=== PATIENT | male | born 1975 | race Caucasian/White ===

== ENCOUNTER 2017-06-01 13:27 | Emergency (ER) | payer OTHER ==
[2017-06-01 13:42] VITALS: O2SAT 99
[2017-06-01] MEDS ORDERED: Tdap Vaccine 0.5 ml Vial (10-64 yrs) IM ONE ×2 (14:38→14:49)
--- NOTE | 2017-06-01 14:46 | ED PDOC ---
Upper Extremity Pain/Injury Time Seen by Provider: 06/01/17 14:26 Chief Complaint (Nursing): Upper Extremity Problem/Injury Chief Complaint (Provider): Left shoulder pain History Per: Patient History/Exam Limitations: no limitations Onset/Duration Of Symptoms: Days (x2) Current Symptoms Are (Timing): Still Present Additional Complaint(s): 41 year old male presents to the ER complaining of left shoulder pain for the past 2 days. States he was standing on a chair doing house work when the chair moved, causing him to fall and hit his left shoulder on something metal. No head trauma or LOC. Pain has been progressively worsening. Patient denies any headache, neck pain, chest pain, shortness of breath, dizziness, numbness, tingling, or other injury. He has no pain at the elbow, wrist, or hand. Tetanus is not up to date. PMD: None Past Medical History Reviewed: Historical Data, Nursing Documentation, Vital Signs Vital Signs: Last Vital Signs Temp 98.8 F 06/01/17 13:40 Pulse 76 06/01/17 13:40 Resp 16 06/01/17 13:40 BP 144/88 06/01/17 13:40 Pulse Ox 99 06/01/17 13:40 - Medical History PMH: No Chronic Diseases - Family History Family History: States: Unknown Family Hx - Home Medications Home Medications: Ambulatory Orders Medication Instructions Recorded Doxycycline [Adoxa] 100 mg PO BID #20 tab 01/01/15 Ibuprofen [Motrin] 600 mg PO TID 7 Days tab 06/01/17 - Allergies Allergies/Adverse Reactions: Allergies Allergy/AdvReac Type Severity Reaction Status Date / Time No Known Allergies Allergy Verified 01/01/15 18:22 Review of Systems ROS Statement: Except As Marked, All Systems Reviewed And Found Negative Constitutional: Negative for: Fever, Chills Cardiovascular: Negative for: Chest Pain Respiratory: Negative for: Shortness of Breath Gastrointestinal: Negative for: Nausea, Vomiting, Diarrhea Musculoskeletal: Positive for: Shoulder Pain (Left). Negative for: Neck Pain, Back Pain Neurological: Negative for: Weakness, Numbness (and tingling), Headache, Dizziness, Other (LOC) Physical Exam - Reviewed Nursing Documentation Reviewed: Yes Vital Signs Reviewed: Yes - Physical Exam Appears: Positive for: Non-toxic, No Acute Distress Head Exam: Positive for: ATRAUMATIC, NORMAL INSPECTION, NORMOCEPHALIC Skin: Positive for: Normal Color (with 12 inch superficial abrasion over the left shoulder, with scabbing. No open laceration; mild tender; no fluctuance.), Warm, Dry Eye Exam: Positive for: EOMI, Normal appearance, PERRL Neck: Positive for: Normal, Painless ROM, Supple Cardiovascular/Chest: Positive for: Regular Rate, Rhythm. Negative for: Murmur Respiratory: Positive for: Normal Breath Sounds. Negative for: Accessory Muscle Use, Respiratory Distress Pulses-Radial (L): 2+ Pulses-Radial (R): 2+ Gastrointestinal/Abdominal: Positive for: Normal Exam, Bowel Sounds, Soft. Negative for: Tenderness Back: Positive for: Normal Inspection. Negative for: Vertebral Tenderness Extremity: Positive for: Normal ROM (Patient w/ mild pain on ROM but has full ROM L shoulder). Negative for: Tenderness, Deformity, Swelling Neurologic/Psych: Positive for: Alert, Oriented. Negative for: Motor/Sensory Deficits - ECG O2 Sat by Pulse Oximetry: 99 (RA) Pulse Ox Interpretation: Normal - Radiology X-Ray: Interpreted by Me X-Ray Interpretation: No Acute Disease - Progress ED Course And Treament: 1534: Stable. AAOx3. Pain free. Tolerated PO. Fu with pcp. Medical Decision Making Medical Decision Making: Initial Impression: Left shoulder injury Time: 14:38 Initial Plan: * Tdap vaccine given * Toradol 15 mg IM * X-Ray of left shoulder * Reevaluation Scribe Attestation: Documented by Maida Tse, acting as a scribe for John Chin MD Provider Scribe Attestation: All medical record entries made by the Scribe were at my direction and personally dictated by me. I have reviewed the chart and agree that the record accurately reflects my personal performance of the history, physical exam, medical decision making, and the department course for this patient. I have also personally directed, reviewed, and agree with the discharge instructions and disposition. Disposition - Clinical Impression Clinical Impression: Shoulder injury, Abrasion - Patient ED Disposition Is Patient to be Admitted: No Counseled Patient/Family Regarding: Studies Performed, Diagnosis, Need For Followup, Rx Given - Disposition Referrals: [facility] [Outside] - 06/04/17 Disposition: Routine/Home Disposition Time: 15:35 Condition: STABLE Additional Instructions: Return if not better in 3 days. Prescriptions: Ibuprofen [Motrin] 600 mg PO TID 7 Days tab Instructions: Skin Abrasions, Shoulder Pain (DC) Print Language: DIVEHI
--- NOTE | 2017-06-01 16:01 | RAD ---
PROCEDURE: Radiographs of the Left Shoulder HISTORY: shoulder pain COMPARISON: No prior. FINDINGS: BONES: Bone alignment and mineralization are normal. No acute fracture. JOINTS: Normal. Glenohumeral and acromioclavicular joints preserved. No osteoarthritis. SOFT TISSUES: Normal. OTHER FINDINGS: None. IMPRESSION: No acute fracture or dislocation.
[2017-06-01 17:06] VITALS: BP 120/70; PULSE 74; RESP 20; TEMP 98.3
== END 2017-06-01 17:07 | disposition home or self-care (01) ==
LOC: H.ER 13:27
DX: S49.92XA Unspecified injury of left shoulder and upper arm, initial encounter (principal); S40.212A Abrasion of left shoulder, initial encounter; W19.XXXA Unspecified fall, initial encounter; Y92.89 Other specified places as the place of occurrence of the external cause
CPT/HCPCS: 73030; 90471; 90715; 96372; 99282; J1885